=== PATIENT | male | born 1970 | race Caucasian/White ===

== ENCOUNTER → 2022-11-30 10:14 | Outpatient (CLI) | payer OTHER, MEDICAID, SELFPAY ==
[2022-11-30 20:03] LABS: Alanine Aminotransferase 24 IU/L (<50); Albumin 4.3 g/dL (3.5-5.0); Albumin Globulin Ratio 1.4 (1.0-2.8); Alkaline Phosphatase 72 U/L (38-126); Aspartate Aminotransferase 33 IU/L (17-59); BUN Creatinine Ratio 12.7 (6-22); Bilirubin Total 0.6 mg/dL (0.2-1.3); Blood Urea Nitrogen 10 mg/dL (9-20); Calcium 9.3 mg/dL (8.4-10.2); Carbon Dioxide 32 mmol/L (22-32); Chloride 100 mmol/L (98-107); Cholesterol 223 mg/dL (140-199); Estimated Glomerular Filt Rate > 60 mL/min (>60); Glucose 89 mg/dL (70-100); HDL Cholesterol 67 mg/dL (40-60); HEMOLYSIS < 15 (0-50); LDL Cholesterol Calculated 146 mg/dL (<100); Potassium 4.2 mmol/L (3.4-5.1); Sodium 138 mmol/L (137-145); Total Protein 7.3 g/dL (6.3-8.2); Triglycerides 48 mg/dL (35-150)
[2022-11-30 20:06] LABS: Add Manual Diff / Slide Review NO; Basophils Absolute Auto 100 /uL (0-100); Basophils Percent Auto 2.6 % (0-2); Eosinophils Absolute Auto 100 /uL (0-450); Eosinophils Percent Auto 1.7 % (2-4); Hematocrit 46.1 % (41-53); Hemoglobin 15.9 g/dL (13.5-17.5); Lymphocytes Absolute Auto 1900 /uL (1100-4500); Lymphocytes Percent Auto 35.4 % (25-40); Mean Corpuscular HGB Conc 34.4 % (30-36); Mean Corpuscular Hemoglobin 30.5 PG (26-34); Mean Corpuscular Volume 88.8 fL (80-100); Monocytes Absolute Auto 400 /uL (0-900); Monocytes Percent Auto 8.5 % (3-14); Neutrophils Absolute Auto 2700 /uL (1500-7000); Neutrophils Percent Auto 51.8 % (50-75); Platelet Count 198 X10^3/uL (150-400); Red Cell Distribution Width 13.5 % (11.6-14.8); White Blood Cell Count 5.3 X10^3/uL (4.5-11.0)
[2022-11-30 20:34] LABS: Prostate Specific Antigen 0.426 ng/mL (0.10-4.00)
== END ==
PROVIDERS: PCP Family Medicine; Visit Provider Family Medicine
DX: Z00.00 Encounter for general adult medical examination without abnormal findings (principal)
CPT/HCPCS: 80053; 80061; 84153; 85025

== ENCOUNTER → 2024-02-17 11:50 | Outpatient (CLI) | payer OTHER, MEDICAID, SELFPAY ==
--- NOTE | 2024-02-17 | DI.CT.S_ITS ---
PROCEDURE: CT WRIST RIGHT WITHOUT CON INDICATIONS: Right wrist fracture TECHNIQUE: Noncontrast 1 mm axial sections acquired through the carpal bones, with coronal and sagittal reformats. COMPARISON: [facility] ([facility]), CR, XR WRIST RT MIN 3V, 02/09/2024, 16:43. FINDINGS: Image quality: Excellent. Bones: There is a comminuted and slightly impacted distal radial fracture with fracture line extending to radiocarpal joint space as well as base of the radial styloid. Dorsally displaced fractured fragments are seen with up to 5 mm diastasis. Up to 3 mm impaction at distal radial shaft fracture site is also seen. No other fracture or dislocation is seen. No suspicious bony lesions. No evidence of avascular necrosis. Soft tissues: There is mild soft tissue swelling surrounding distal radial fracture site. Small radiocarpal joint effusion is seen, no calcified intra-articular loose bodies. No abnormal soft tissue calcifications. No gross full-thickness wrist tendon rupture. IMPRESSION: 1. Acute comminuted, impacted and slightly displaced intra-articular fracture of distal radius as described above. No other fracture or dislocation. No suspicious bony lesions. No evidence of avascular necrosis. 2. Wrist soft tissue swelling around fracture site. Small joint effusion. No calcified loose bodies or abnormal soft tissue calcifications. No gross full-thickness wrist tendon rupture. Dictated by: Jesse Mijares M.D. on 02/17/2024 at 14:27 Approved by: Jesse Mijares M.D. on 02/17/2024 at 14:42
== END ==
LOC: CT 11:51
PROVIDERS: PCP Family Medicine; Referring Provider Physician Assistant Surgical; Visit Provider Physician Assistant Surgical
DX: S52.571A Other intraarticular fracture of lower end of right radius, initial encounter for closed fracture (principal); X58.XXXA Exposure to other specified factors, initial encounter
CPT/HCPCS: 73200

== ENCOUNTER 2024-02-17 14:17 | Day surgery (SDC) | payer OTHER, MEDICAID, SELFPAY ==
[2024-02-15 10:51] VITALS: BMI 19.8
[2024-02-17] VITALS (9 sets, daily range): BP systolic 101–136; BP diastolic 55–84; PULSE 68–93; RESP 10–16; TEMP 36.2–37.1; O2SAT 95–100; BMI 19.8
[2024-02-17] MEDS: LACTATED RINGERS 1,000 ML 42 ML IV (15:27)
[2024-02-17] MEDS: ACETAMINOPHEN 325 MG TABLET 975 MG PO (16:23)
--- NOTE | 2024-02-17 17:08 | PM.PREOP ---
Pre-operative Note Interval Note History & Physical reviewed/Exam performed by Physician: Yes Changes to H&P: No
[2024-02-17] MEDS: CEFAZOLIN 2 GM/100 ML PREMIX 100 ML IV (17:25)
--- NOTE | 2024-02-17 17:42 | SUR.OPER ---
Supine on padded OR bed, head on pillow, non-operative arm secured on padded arm board at <90 degrees abduction, operative arm on arm table at less than 90 degrees abduction, legs uncrossed, safety belt at thigh, tape over blanket over lower legs.
[2024-02-17] MEDS: BUPIVACAINE 0.25% (PF) 30 ML, EPINEPHrine 0.15 MG INJ (17:48)
--- NOTE | 2024-02-17 18:26 | PM.OP.1 ---
Operative Date/Time/Diagnoses Date of procedure: 02/17/24 Time of procedure: 17:30 Pre-op diagnosis: Right intra-articular distal radius fracture Post-op diagnosis: same Procedure & Clinicians Procedure: Open reduction internal fixation of an intra-articular right distal radius fracture Same procedure as scheduled: Yes Indications: Displaced intra-articular distal radius fracture Surgeon: Jono Michelle [employer] Assistant: Sin Frank Anesthesia Type: General Operative Notes Findings: Displaced intra-articular distal radius fracture mainly involving the ulnar corner Applied: implant(s) (Arthrex volar distal radius plate) Estimated Blood Loss (mL): 5 Tourniquet time (min): 40 Procedure in detail: On date of service, patient was met in the holding area where the operative site was signed and witnessed by the OR staff. The surgery was once again discussed with the patient and any remaining questions or concerns were answered to the patient's full satisfaction. Time-out was performed verifying patient's name procedure and operative site. Patient was taken back to the operating theater and placed on the operating table in a supine position. Great care was taken to ensure that all bony prominences were appropriately padded. Well-padded tourniquet was placed up along the upper extremity. Another time-out was performed verifying patient's name, procedure, and operative site. The upper extremity was then prepped and draped in the normal sterile fashion. Esmarch was used to exsanguinate the limb and the tourniquet was turned up to 250 mm of mercury. Fifteen blade was used to expose the distal radius. An incision was made over the FCR tendons. The FCR tendon was retracted and the floor of the tendon was opened with a 15 blade. The FPL tendon and muscle belly was retracted ulnarly giving us good visualization of the pronator quadratus. The pronator quadratus was excised off the distal radius using the 15 blade and then finished with a periosteal elevator. Next the brachia radialis attachment to the radial styloid was released to help with overall reduction. Retractors were placed allowing us good visualization of the distal radius as well as the shaft. A reduction maneuver was performed and a K-wire was placed holding a provisional reduction of the intra-articular distal radius fracture. C-arm was brought in to verify overall reduction. Once we were satisfied with the overall reduction, a plate was placed and held provisionally with K-wires. C-arm was once again used to verify plate positioning as well as reduction. The plate was then fixated to the distal fragment using locking screws. Lateral C-arm views were used to verify that the screws were not intra-articular or broaching the dorsal cortex. At this point we are able to use the plate to help fine tune the overall reduction. Once we were satisfied with the overall reduction the plate was then secured to the shaft with a combination of locking and nonlocking screws. Final x-rays were obtained. The wound was copiously irrigated and closed in a layered fashion. The wrist and hand were cleaned dried dressed. Patient was placed into a splint and taken to the PACU in stable condition. Complications: none Post-operative Condition: stable Disposition: PACU Plan for aftercare: Patient will follow our postoperative protocol for distal radius fractures no restrictions to range of motion in 48 hours no lifting more than 2-3 lb for the next 6 weeks.
[2024-02-17] MEDS: KETOROLAC 30 MG/ML VIAL IV (18:48)
[2024-02-17] MEDS: ONDANSETRON 4 MG/2 ML INJ IV (18:49)
[2024-02-17] MEDS: OXYCODONE IR 5 MG TABLET PO ×2 (18:53→19:16)
--- NOTE | 2024-02-17 19:50 | SUR.PHASEII ---
Pt complained of pain to top of forearm, felt like it was tight. Area with tight tendon or muscle, soft. Dar wrap loosened to ensure no pinching. Pt also concerned about numbness to fingers. Pt had local, explained this is to be expected, if it does not wear off in 12-24 hours to call MD. Also to call for fingers that turn cold, blue or white in color. Pt and spouse verbalized understanding. Pt able to wiggles fingers. No signs of impingement. Pain 03/01. Pt able to dress self, was talking and relaxed.
== END 2024-02-17 19:38 | disposition home or self-care (01) ==
PROVIDERS: PCP Family Medicine; Referring Provider Orthopaedic Surgery; Visit Provider Orthopaedic Surgery
PROC: (CPT 25609; principal; 2024-02-17 16:15)
DX: S52.571A Other intraarticular fracture of lower end of right radius, initial encounter for closed fracture (principal); W12.XXXA Fall on and from scaffolding, initial encounter; Y93.89 Activity, other specified; Y92.008 Other place in unspecified non-institutional (private) residence as the place of occurrence of the external cause; X58.XXXA Exposure to other specified factors, initial encounter
CPT/HCPCS: 25609; 73200; C1713; J0171; J0690; J1100; J1885; J2250; J2405; J2704; J3010

== ENCOUNTER → 2025-02-26 10:19 | Outpatient (CLI) | payer BC, SELFPAY ==
[2025-02-26 18:40] LABS: Add Manual Diff / Slide Review NO; Basophils Absolute Auto 0 /uL (0-100); Basophils Percent Auto 0.3 % (0-2); Eosinophils Absolute Auto 600 /uL (0-450); Eosinophils Percent Auto 8.9 % (2-4); Hematocrit 48.3 % (41-53); Hemoglobin 16.2 g/dL (13.5-17.5); Lymphocytes Absolute Auto 2300 /uL (1100-4500); Lymphocytes Percent Auto 35.3 % (25-40); Mean Corpuscular HGB Conc 33.7 % (30-36); Mean Corpuscular Hemoglobin 30.3 PG (26-34); Monocytes Absolute Auto 400 /uL (0-900); Monocytes Percent Auto 6.5 % (3-14); Neutrophils Absolute Auto 3200 /uL (1500-7000); Platelet Count 173 X10^3/uL (150-400); Red Blood Cell Count 5.36 X10^6/uL (4.5-5.9); Red Cell Distribution Width 13.5 % (11.6-14.8); White Blood Cell Count 6.5 X10^3/uL (4.5-11.0)
[2025-02-26 19:14] LABS: BUN Creatinine Ratio 18.8 (6-22); Blood Urea Nitrogen 18 mg/dL (9-20); Calcium 9.6 mg/dL (8.4-10.2); Carbon Dioxide 29 mmol/L (22-32); Chloride 101 mmol/L (98-107); Cholesterol 253 mg/dL (140-199); Estimated Glomerular Filt Rate > 60 mL/min (>60); Glucose 94 mg/dL (70-100); HDL Cholesterol 65 mg/dL (40-60); HEMOLYSIS < 15 (0-50); LDL Cholesterol Calculated 175 mg/dL (<100); Potassium 4.6 mmol/L (3.4-5.1); Sodium 137 mmol/L (137-145); Triglycerides 63 mg/dL (35-150)
== END ==
PROVIDERS: PCP Family Medicine; Visit Provider Family Medicine
DX: Z12.11 Encounter for screening for malignant neoplasm of colon (principal); Z13.1 Encounter for screening for diabetes mellitus; Z13.220 Encounter for screening for lipoid disorders; Z12.5 Encounter for screening for malignant neoplasm of prostate
CPT/HCPCS: 80048; 80061; 85025; G0103